=== PATIENT | male | born 1990 | race African-American/Black ===

== ENCOUNTER 2018-03-17 13:03 | Emergency (ER) | payer OTHER ==
[~2018-03-17] VITALS: Ht 195.6 cm; Wt 90.7 kg
[~2018-03-17 13:03] MED LIST: MOBIC15 MG PO; VENTOLIN HFA 1818 GM INH
[2018-03-17] MEDS ORDERED: OSELB75 PO (14:42)
[2018-03-17 14:48] VITALS: BP 121/86
== END 2018-03-17 14:45 | disposition home or self-care (01) ==
LOC: ER 13:03
DX: J09.X2 Influenza due to identified novel influenza A virus with other respiratory manifestations (principal); J45.909 Unspecified asthma, uncomplicated

== ENCOUNTER 2018-07-06 22:01 | Emergency (ER) | payer OTHER ==
[~2018-07-06] VITALS: Ht 195.6 cm; Wt 90.7 kg
[~2018-07-06 22:01] MED LIST changes: +OSELB75 PO
[2018-07-06] MEDS ORDERED: AUGMENTIN 875-1 EACH PO (23:49)
[2018-07-06 23:53] VITALS: BP 117/75
== END 2018-07-07 00:03 | disposition home or self-care (01) ==
LOC: ER 22:01
DX: S01.111A Laceration without foreign body of right eyelid and periocular area, initial encounter (principal); J45.909 Unspecified asthma, uncomplicated; Y04.0XXA Assault by unarmed brawl or fight, initial encounter; Y93.89 Activity, other specified; Y92.89 Other specified places as the place of occurrence of the external cause; Y99.8 Other external cause status

== ENCOUNTER 2018-07-12 10:06 | Emergency (ER) | payer OTHER ==
[~2018-07-12] VITALS: Ht 195.6 cm; Wt 90.7 kg
[~2018-07-12 10:06] MED LIST changes: +AUGMENTIN 875-1 EACH PO
[2018-07-12 10:53] VITALS: BP 131/69
== END 2018-07-12 10:54 | disposition home or self-care (01) ==
LOC: ER 10:06
DX: S01.111D Laceration without foreign body of right eyelid and periocular area, subsequent encounter (principal); J45.909 Unspecified asthma, uncomplicated; X58.XXXD Exposure to other specified factors, subsequent encounter

== ENCOUNTER 2019-05-13 19:34 | Emergency (ER) | payer BC ==
[~2019-05-13] VITALS: Ht 195.6 cm; Wt 90.7 kg
[2019-05-13] MEDS ORDERED: NAPROSYN500 MG PO (20:43)
[2019-05-13 20:50] VITALS: BP 151/77
== END 2019-05-13 20:50 | disposition home or self-care (01) ==
LOC: ER 19:34
DX: S93.402A Sprain of unspecified ligament of left ankle, initial encounter (principal); S93.602A Unspecified sprain of left foot, initial encounter; J45.909 Unspecified asthma, uncomplicated; Z79.899 Other long term (current) drug therapy; W18.40XA Slipping, tripping and stumbling without falling, unspecified, initial encounter; Y93.02 Activity, running; Y92.89 Other specified places as the place of occurrence of the external cause; Y99.8 Other external cause status